=== PATIENT | male | born 1960 | race Caucasian/White ===

== ENCOUNTER 2021-10-27 08:23 | Day surgery (SDC) | payer OTHER ==
[2021-10-26 13:15] VITALS: BP 146/67
[2021-10-27] VITALS (15 sets, daily range): BP systolic 104–131; BP diastolic 53–84
[~2021-10-27] VITALS: Ht 170.2 cm; Wt 103.0 kg
[~2021-10-27 08:23] MED LIST: CEFAZOLIN SODIUM 2 GM VIAL IV SCH; MVI PO; OMEGA PO
[2021-10-27] MEDS ORDERED: LACTATED RINGERS 1000ML 1,000 ML IV ONE (08:25)
[2021-10-27] MEDS ORDERED: CEFAZOLIN SODIUM 1 GM VIAL ONE (08:25)
[2021-10-27] MEDS ORDERED: ONDANSETRON 4MG INJ ONE (09:41)
[2021-10-27] MEDS ORDERED: DEXAMETHASONE SOD PHOSPHATE 10MG/ML 1ML VIAL ONE (09:41)
[2021-10-27] MEDS ORDERED: NEOSTIGMINE 5MG/5ML SYR IV ONE (09:41)
[2021-10-27] MEDS ORDERED: FENTANYL CITRATE PF 50 MCG/1 ML 2ML VIAL ONE ×2 (09:41→10:12)
[2021-10-27] MEDS ORDERED: PROPOFOL 10 MG/ML 20ML VIAL IV ONE (09:41)
[2021-10-27] MEDS ORDERED: LIDOCAINE PF 100MG/5ML (2%) SYRINGE 5ML ONE ×2 (09:41→09:42)
[2021-10-27] MEDS ORDERED: GLYCOPYRROLATE 1 MG/5 ML SYRINGE ONE (09:41)
[2021-10-27] MEDS ORDERED: ROCURONIUM 10MG/1ML SYR 10 MG/ML ML ONE (09:42)
[2021-10-27] MEDS ORDERED: MIDAZOLAM HCL 1 MG/ML 2ML VIAL ONE (09:42)
[2021-10-27] MEDS ORDERED: ATROPINE 1MG SYG IVP ONE (10:24)
[2021-10-27] MEDS ORDERED: ACET1TAB25 PO (10:53)
[2021-10-27] MEDS ORDERED: IBUP-2070 PO (10:53)
[2021-10-27] MEDS ORDERED: CEPH500B PO (10:53)
== END 2021-10-27 12:25 | disposition home or self-care (01) ==
LOC: DAH 08:23
PROVIDERS: ATTEND Orthopaedic Surgery
DX: M23.321 Other meniscus derangements, posterior horn of medial meniscus, right knee (principal); Z20.822 Contact with and (suspected) exposure to COVID-19; M17.11 Unilateral primary osteoarthritis, right knee; G89.29 Other chronic pain; M94.261 Chondromalacia, right knee; Z98.890 Other specified postprocedural states; Z82.49 Family history of ischemic heart disease and other diseases of the circulatory system; Z83.3 Family history of diabetes mellitus
CPT/HCPCS: 29881; 87635; A4215; A4221; A4222; A4223; A4649; A4663; A4930 ×2; A5120; A6223; C9803; J0461; J0690; J1100; J2001 ×2; J2250; J2405; J2704; J2710; J3010 ×2; J3490; J7120 ×2

== ENCOUNTER → 2022-11-23 | Outpatient (CLI) | payer OTHER ==
[~2022-11-23] MED LIST changes: +ACET-2079 PO; -CEFAZOLIN SODIUM 2 GM VIAL IV SCH; +CEPH500B PO; +IBUP-2070 PO
[2022-11-23 10:20] LABS: BASOPHILS % (AUTO) 0.8 % (0.0-5.0); EOSINOPHILS % (AUTO) 2.1 % (0.0-8.0); HEMATOCRIT 44.2 % (42-54); LYMPHOCYTES % (AUTO) 36.6 % (21.0-51.0); MEAN CORPUSCULAR HGB CONC 32.4 g/dL (32.0-36.0); MEAN CORPUSCULAR VOLUME 92.7 fL (79-99); MONOCYTES % (AUTO) 6.2 % (3.0-13.0); NEUTROPHILS % (AUTO) 53.9 % (40.0-77.0); PLATELET COUNT (AUTO) 145 K/uL (130-400); RED BLOOD CELL COUNT(AUTO) 4.77 MIL/uL (4.50-6.20); RED CELL DISTRIBUTION WIDTH 14.1 % (11.0-15.5); WHITE BLOOD COUNT (AUTO) 7.3 K/uL (4.8-10.8)
[2022-11-23 10:32] LABS: INR 1.02 (0.85-1.15); PROTHROMBIN TIME 11.1 SEC (9.6-11.6)
[2022-11-23 10:33] LABS: PARTIAL THROMBOPLASTIN TIME 31.3 SEC (26.3-35.5)
[2022-11-23 10:36] LABS: ALBUMIN 3.9 g/dL (3.5-5.0); CREATININE 1.1 mg/dL (0.5-1.5); POTASSIUM 4.3 mmol/L (3.5-5.1); TOTAL PROTEIN, SERUM 8.5 g/dL (6.0-8.3)
[2022-11-23 22:22] LABS: HEPATITIS B SURFACE ANTIGEN Non-Reactive (Nonreactive); HEPATITIS C ANTIBODY Non-Reactive (Nonreactive)
[2022-11-24 08:15] LABS: HEPATITIS A ANTIBODY TOTAL Negative (Negative)
== END | disposition home or self-care (01) ==
LOC: LAB 09:47
PROVIDERS: ATTEND Internal Medicine Gastroenterology
DX: R94.5 Abnormal results of liver function studies (principal)
CPT/HCPCS: 36415; 80053; 85025; 85610; 85730; 86706; 86708; 87340; 87520

== ENCOUNTER → 2022-12-05 | Outpatient (CLI) | payer OTHER | END | disposition home or self-care (01) | LOC: RAH 08:17 | PROVIDERS: ATTEND Internal Medicine Gastroenterology | DX: R93.3 Abnormal findings on diagnostic imaging of other parts of digestive tract (principal); K76.0 Fatty (change of) liver, not elsewhere classified | CPT/HCPCS: 74183 ==